=== PATIENT | male | born 1945 | race Asian ===

== ENCOUNTER 2017-03-16 10:51 | Emergency (ER) | payer OTHER ==
[~2017-03-16] VITALS: Ht 175.3 cm; Wt 58.1 kg
[2017-03-16 10:59] VITALS: TEMP 97.8
[2017-03-16 12:37] LABS: PLATELET COUNT 158 K/uL (142-355)
[2017-03-16 12:45] LABS: POTASSIUM 4.2 mmol/L (3.6-5.2); SODIUM 137 mmol/L (136-145)
[2017-03-16 17:15] VITALS: BP 178/90
== END 2017-03-16 17:29 | disposition home or self-care (01) ==
LOC: ED 10:51
DX: S20.211A Contusion of right front wall of thorax, initial encounter (principal); M48.54XA Collapsed vertebra, not elsewhere classified, thoracic region, initial encounter for fracture; Z87.81 Personal history of (healed) traumatic fracture; I10 Essential (primary) hypertension; R10.11 Right upper quadrant pain; W11.XXXA Fall on and from ladder, initial encounter; Y92.89 Other specified places as the place of occurrence of the external cause
CPT/HCPCS: 36415; 80053; 85027; 96360; 96361; 99284